=== PATIENT | female | born 1930 | race American Indian/Alaskan Native ===

== ENCOUNTER 2017-03-17 15:22 | Emergency (ER) | payer MEDICARE ==
[2017-03-17 15:53] VITALS: BP 124/73
[2017-03-17 16:17] LABS: Basophils % (Auto) 0.5 % (0.0-1.8); Eosinophils % (Auto) 1.4 % (0.0-4.3); Hematocrit 30.1 % (30.3-42.9); Mean Corpuscular HGB Conc 33 % (30-34); Mean Corpuscular Hemoglobin 29 pg (28-32); Mean Corpuscular Volume 87 fl (79-97); Platelet Count 232 K/mm3 (140-440); Red Blood Count 3.44 M/mm3 (3.65-5.03); Red Cell Distribution Width 17.3 % (13.2-15.2); White Blood Count 4.4 K/mm3 (4.5-11.0)
[2017-03-17 16:36] LABS: Calcium 8.7 mg/dL (8.4-10.2); Chloride 102.8 mmol/L (98-107); Potassium 3.9 mmol/L (3.6-5.0)
--- NOTE | 2017-03-18 00:28 | Emergency Department Report ---
ED Psych HPI - General Chief Complaint: Medical Clearance Stated Complaint: MEDICAL CLEARANCE,MEDICATION ADJUSTMENT Time Seen by Provider: 03/17/17 23:26 Source: family Mode of arrival: Wheelchair Limitations: Other (Dementia with poor history from patient but Family gave good history.) - History of Present Illness Initial Comments: Patient was getting violent today with other residents and staff at her assisted living home. They home asked the son to bring her for an evaluation and that she would be more appropriate for [facility]. Family is anticipating her being sent to [place]. Patient has been calm here and son reports he was able to calm her. Complaint: other (aggressive behavior at assisted living.) -: Sudden, This morning Associated Psychiatric Symptoms: other (aggressive behavior) History of same: Yes Quality: resolved prior to arrival Improves With: none Worsens With: none Associated Symptoms: denies other symptoms Treatments Prior to Arrival: none If Self Harm: other (No intention to harm herself.) - Related Data Previous Rx's Medication Instructions Recorded Last Taken Type Cephalexin [Keflex] 500 mg PO Q8HR 10 Days 03/18/17 Unknown Rx Allergies Allergy/AdvReac Type Severity Reaction Status Date / Time No Known Allergies Allergy Unverified 03/17/17 15:46 ED Review of Systems ROS: Stated complaint: MEDICAL CLEARANCE,MEDICATION ADJUSTMENT Other details as noted in HPI Constitutional: denies: chills, fever Eyes: denies: eye pain, eye discharge, vision change ENT: denies: ear pain, throat pain Respiratory: denies: cough, shortness of breath, wheezing Cardiovascular: denies: chest pain, palpitations Endocrine: no symptoms reported Gastrointestinal: denies: abdominal pain, nausea, diarrhea Genitourinary: denies: urgency, dysuria, discharge Musculoskeletal: denies: back pain, joint swelling, arthralgia Skin: denies: rash, lesions Neurological: denies: headache, weakness, paresthesias Psychiatric: denies: anxiety, depression Hematological/Lymphatic: denies: easy bleeding, easy bruising ED Past Medical Hx - Past Medical History Hx Psychiatric Treatment: Yes (dementia) Hx Dementia: Yes - Surgical History Additional Surgical History: knee - Social History Smoking Status: Current Some Day Smoker Substance Use Type: None - Medications Home Medications: Home Medications Medication Instructions Recorded Confirmed Last Taken Type Cephalexin [Keflex] 500 mg PO Q8HR 10 Days 03/18/17 Unknown Rx ED Physical Exam - General Limitations: No Limitations, Other (laying in bed responsive but lethargic) General appearance: alert, in no apparent distress - Head Head exam: Present: atraumatic, normocephalic - Eye Eye exam: Present: normal appearance - ENT ENT exam: Present: mucous membranes moist - Neck Neck exam: Present: normal inspection - Respiratory Respiratory exam: Present: normal lung sounds bilaterally. Absent: respiratory distress - Cardiovascular Cardiovascular Exam: Present: regular rate, normal rhythm. Absent: systolic murmur, diastolic murmur, rubs, gallop - GI/Abdominal GI/Abdominal exam: Present: soft, normal bowel sounds - Extremities Exam Extremities exam: Present: normal inspection - Back Exam Back exam: Present: normal inspection - Neurological Exam Neurological exam: Present: alert, oriented X3 - Psychiatric Psychiatric exam: Present: depressed - Skin Skin exam: Present: warm, dry, intact, normal color. Absent: rash ED Course Vital Signs 03/17/17 15:47 Temperature 98.9 F Pulse Rate 79 Respiratory 18 Rate Blood Pressure 124/73 O2 Sat by Pulse 97 Oximetry ED Medical Decision Making - Lab Data Result diagrams: 03/17/17 15:56 03/17/17 15:56 - Medical Decision Making Patient with dementia. Will treat UTI but needs to consider evaluation by psych. Psych has recommended making efforts to get to preferred facilty and give family information. Will send home on keflex. Critical care attestation.: If time is entered above; I have spent that time in minutes in the direct care of this critically ill patient, excluding procedure time. ED Disposition Clinical Impression: Delirium UTI (urinary tract infection) Qualifiers: Urinary tract infection type: acute cystitis Hematuria presence: without hematuria Qualified Code(s): N30.00 - Acute cystitis without hematuria Disposition: DC-01 TO HOME OR SELFCARE Is pt being admited?: No Does the pt Need Aspirin: No Condition: Stable Instructions: Urinary Tract Infection in Women (ED), Acute Delirium (ED) Prescriptions: Cephalexin [Keflex] 500 mg PO Q8HR 10 Days Referrals: PRIMARY CARE, [Primary Care Provider] - 3-5 Days Time of Disposition: 03:00 (D/W psych prior to eval but based on information it appears she will have to go back to [facility] and have her UTI treated first. Likely source of delerium.)
[2017-03-18 01:04] LABS: Urine Drugs of Abuse Note Disclamer
[2017-03-18 01:19] LABS: Bilirubin,Urine Negative (Negative); Blood,Urine Negative (Negative); Ketones,Urine Negative (Negative); Protein,Urine <15 mg/dL mg/dL (Negative)
[2017-03-18 01:20] LABS: Leukocyte Esterase,Urine Trace (Negative); Nitrite,Urine Negative (Negative); RBC,Urine < 1.0 /HPF (0.0-6.0); Urobilinogen,Urine < 2.0 mg/dL (<2.0)
== END 2017-03-18 04:34 | disposition home or self-care (01) ==
LOC: ED 15:22
DX: N30.00 Acute cystitis without hematuria (principal); R41.0 Disorientation, unspecified; F03.90 Unspecified dementia, unspecified severity, without behavioral disturbance, psychotic disturbance, mood disturbance, and anxiety
CPT/HCPCS: 36415; 80048; 80307; 81001; 85025; 99283; G0480; 80320